=== PATIENT | male | born 1970 | race Caucasian/White ===

== ENCOUNTER 2021-04-15 18:53 | Emergency (ER) | payer OTHER ==
[~2021-04-15] VITALS: Ht 152.4 cm; Wt 77.1 kg
[2021-04-15 18:53] VITALS: BP 148/98
--- NOTE | 2021-04-15 19:39 | NUR ---
d/c back to [facility] officer Kyle #[id number] custody.
== END 2021-04-15 19:39 ==
LOC: MED 18:53
DX: S00.531A Contusion of lip, initial encounter (principal); Z02.89 Encounter for other administrative examinations; X58.XXXA Exposure to other specified factors, initial encounter; Y93.89 Activity, other specified; Y92.89 Other specified places as the place of occurrence of the external cause; Y99.8 Other external cause status
CPT/HCPCS: 99283